=== PATIENT | female | born 1945 | race Caucasian/White ===

== ENCOUNTER 2018-07-15 09:43 | Outpatient (CLI) | payer MEDICARE ==
--- NOTE | 2018-07-15 12:04 | MMO ---
BILATERAL SCREENING MAMMOGRAM: Date: 07/15/18 COMPARISON: 07/10/17, 06/12/16, 06/07/15, and 06/06/14. HISTORY: 73-year-old female. Routine screening mammography. TECHNIQUE: CC and MLO views of both breasts are submitted for interpretation. This patient's mammogram was reviewed with the assistance of computer-aided detection. FINDINGS: The breasts are composed of scattered fibroglandular tissue. Bilaterally, no suspicious dominant mass , architectural distortion, or suspicious calcifications. IMPRESSION: BIRADS 1: Negative RECOMMENDATION: Annual mammogram. POS: [facility]
== END 2018-07-15 09:44 | disposition home or self-care (01) ==
LOC: SCSMAMMO 09:43
PROVIDERS: ATTEND Internal Medicine
DX: Z12.31 Encounter for screening mammogram for malignant neoplasm of breast (principal)
CPT/HCPCS: 77067